=== PATIENT | male | born 2005 | race Hispanic/Latino ===

== ENCOUNTER 2024-05-06 15:22 | Outpatient (CLI) | payer OTHER | END 2024-05-06 15:23 | disposition home or self-care (01) | LOC: CSHCT 15:22 | PROVIDERS: ATTEND Otolaryngology Plastic Surgery within the Head & Neck | DX: H92.11 Otorrhea, right ear (principal); H74.8X1 Other specified disorders of right middle ear and mastoid; H72.91 Unspecified perforation of tympanic membrane, right ear | CPT/HCPCS: 70480 ==